=== PATIENT | female | born 1960 | race Caucasian/White ===

== ENCOUNTER 2016-05-26 11:34 | Day surgery (SDC) | payer OTHER ==
[~2016-05-26] VITALS: Ht 149.9 cm; Wt 52.9 kg
[2016-05-26] VITALS (27 sets, daily range): BP systolic 93–134; BP diastolic 55–78; PULSE 16–97; RESP 10–20; TEMP 97.1–98.7; O2SAT 90–100; Ht 149.9 cm; Wt 52.9 kg
[~2016-05-26 11:34] MED LIST: ACET-2723 PO; DEXA4TAB PO; DOCU-132 PO; ERTAPENEM 1 G in NORMAL SALINE 100 ML IV ONE; HYDR-4246 PO; LIDOCAINE 1% (10mg/ml) 2ml SDV INJ ONE; LR 1,000 ML IV SCH; MULT-933 PO; NAPR220C11 PO; ONDA4TAB4 PO; ONDA4TAB7 PO; POTA10CA37 PO; PREN1TAB77 PO; PROC-14 PO
--- OUTSIDE RECORDS SUMMARY | 2016-05-26 11:38 | XMS REPORT | Referral Summary ---
Author Author [facility] Organization [facility] Address Unknown Phone Unavailable Care Team Providers Care Ammunition Assembly Ii Laborer Name Role Phone Evelina Fernandez Primary Care Physician [phone] Encounter VC Date(s): 09/05/14 - 09/05/14 [facility] [address] [place] [address] CHERY Whitley [id number] Discharge Diagnosis: Post-operative state Discharge Disposition: 01-Home or Self Care Attending Physician: Parker Pino MD Admitting Physician: Parker Pino MD Referring Physician: Jessi Bolanos APRN Vital Signs Most recent to 1 oldest [Reference Range]: Temperature Tympanic 36.7 degC [36.6-38.1 degC] (09/05/14 10:13 AM) Problem List Condition Effective Dates Status Health Status Informant Breast Active cancer(Confirmed) Allergies, Adverse Reactions, Alerts Substance Reaction Severity Status iodine1 Medium Active 1HIVES Medications Compazine See Instructions, 10 mg Oral every 6 hrs prn nausea, 0 Refill(s) Start Date: 08/11/14 Status: Ordered Dulcolax Stool Softener mg, Oral, BID, 0 Refill(s) Start Date: 03/19/14 Status: Ordered Imodium A-D See Instructions, 1 mg/7.5 ml liquid. Take 5 ml po prn., 0 Refill(s) Start Date: 08/11/14 Status: Ordered multivitamin 1 tablet, Oral, Daily, 0 Refill(s) Start Date: 08/11/14 Status: Ordered predniSONE See Instructions, 50 mg as directed prior to procedure., 0 Refill(s) Start Date: 08/11/14 Status: Ordered Tylenol Extra Strength 500 mg, Oral, q6hr, as needed for pain, 0 Refill(s) Start Date: 6/1/15 Status: Ordered Results No data available for this section Immunizations No data available for this section Procedures Procedure Date Related Diagnosis Body Site Bilateral mastectomy1 08/29/14 Insertion of implantable venous access port2 04/02/14 Tubal ligation 12/30/99 1With left sentinel node biopsy, node benign.. 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 2Metastaticc breast cancer require neoadjuvant therapy Social History Social History Type Response Smoking Status Never smoker Assessment and Plan Extracted from: Title: Office Visit Note Author: Parker Pino MD Date: 09/06/14 Assessment/Plan Post-operative state Ordered: Postoperative Est [id number] Plan: I informed the patient of her pathology report which was quite encouraging. She was not found to have any residual invasive carcinoma within her left breast following her neoadjuvant therapy. There was still a foci of DCIS. Warriormine metastases node was negative. No malignancy noted within her right prophylactic mastectomy specimen. Her JAZMINE drains were DC'd today. Patient was returned to the office at a one week interval for her suture removal or sooner if problems should arise.
--- OUTSIDE RECORDS SUMMARY | 2016-05-26 11:38 | XMS REPORT | Referral Summary ---
Author Author [facility] Organization [facility] Address Unknown Phone Unavailable Care Team Providers Care Rounder And Backer Name Role Phone Fernandez Evelina Primary Care Physician [phone] Encounter VC Date(s): 09/11/14 - 09/11/14 [facility] [address] [place] [address] CHERY Whitley [id number] Discharge Diagnosis: Visit for suture removal Discharge Diagnosis: Breast cancer Discharge Disposition: 01-Home or Self Care Attending Physician: Jessi Bolanos APRN Admitting Physician: Jessi Bolanos APRN Vital Signs Most recent to 1 oldest [Reference Range]: Temperature Tympanic 36.8 degC [36.6-38.1 degC] (09/11/14 8:43 AM) Problem List Condition Effective Dates Status [...] needed for pain, 0 Refill(s) Start Date: 08/11/14 Status: Ordered Results No data available for [...] smoker Assessment and Plan Extracted from: Title: Ambulatory Patient Education Author: Jessi Bolanos RAILROAD CAR LOADER Date : 09/11/14 [facility] Breast Cancer Survivor Follow-Up Breast cancer begins when cells in the breast divide too rapidly. The extra cells form a lump (tumor ). When the cancer is treated, the goal is to get rid of all cancer cells. However, sometimes a few cells survive. These cancer cells can then grow. They become recurrent cancer. This means the cancer comes back after treatment. Most cases of recurrent breast cancer develop 3 to 5 years after treatment. However, sometimes it comes back just a few months after treatment. Other times , it does not come back until years later. If the cancer comes back in the same area as the first breast cancer, it is called a local recurrence. If the cancer comes back somewhere else in the body, it is called regional recurrence if the site is fairly near the breast or distant recurrence if it is far from the breast. Your caregiver may also use the term metastasize to indicate a cancer that has gone to another part of your body. Treatment is still possible after either kind of recurrence. The cancer can still be controlled. CAUSES OF RECURRENT CANCER No one knows exactly why breast cancer starts in the first place. Why the cancer comes back after treatment is also not clear. It is known that certain conditions, called risk factors, can make this more likely. They include: Developing breast cancer for the first time before age 60. Having breast cancer that involves the lymph nodes. These are small, round pieces of tissue found all over the body. Their job is to help fight infections. Having a large tumor. Cancer is more apt to come back if the first tumor was bigger than 2 inches (5 cm). Having certain types of breast cancer, such as: Inflammatory breast cancer. This rare type grows rapidly and causes the breast to become red and swollen. A high-grade tumor. The grade of a tumor indicates how fast it will grow and spread. High-grade tumors grow more quickly than other types. HER2 cancer. This refers to the tumor's genetic makeup. Tumors that have this type of gene are more likely to come back after treatment. Having close tumor margins. This refers to the space between the tumor and normal, noncancerous cells. If the space is small, the tumor has a greater chance of coming back. Having treatment involving a surgery to remove the tumor but not the entire breast (lumpectomy ) and no radiation therapy. CARE AFTER BREAST CANCER Home Monitoring Women who have had breast cancer should continue to examine their breasts every month. The goal is to catch the cancer quickly if it comes back. Many women find it helpful to do so on the same day each month and to arvin the calendar as a reminder. Let your caregiver know immediately if you have any signs of recurrent breast cancer. Symptoms will vary, depending on where the cancer recurs. The original type of treatment can also make a difference. Symptoms of local recurrence after a lumpectomy or a recurrence in the opposite breast may include: A new lump or thickening in the breast. A change in the way the skin looks on the breast (such as a rash, dimpling , or wrinkling). Redness or swelling of the breast. Changes in the nipple (such as being red, puckered, swollen, or leaking fluid). Symptoms of a recurrence after a breast removal surgery (mastectomy ) may include: A lump or thickening under the skin. A thickening around the mastectomy scar. Symptoms of regional recurrence in the lymph nodes near the breast may include: A lump under the arm or above the collarbone. Swelling of the arm. Pain in the arm, shoulder, or chest. Numbness in the hand or arm. Symptoms of distant recurrence may include: A cough that does not go away. Trouble breathing or shortness of breath. Pain in the bones or the chest. This is pain that lasts or does not respond to rest and medicine. Headaches. Sudden vision problems. Dizziness. Nausea or vomiting. Losing weight without trying to. Persistent abdominal pain. Changes in bowel movements or blood in the stool. Yellowing of the skin or eyes (jaundice ). Blood in the urine or bloody vaginal discharge. Clinical Monitoring It is helpful to keep a schedule of appointments for needed tests and exams. This includes physical exams, breast exams, exams of the lymph nodes, and general exams. For the first 3 years after being treated for breast cancer, see your caregiver every 3 to 6 months. For years 4 and 5 after breast cancer, see your caregiver every 6 to 12 months. After 5 years, see your caregiver at least once a year. Regular breast X-rays (mammograms ) should continue even if you had a mastectomy. A mammogram should be done 1 year after the mammogram that first detected breast cancer. A mammogram should be done every 6 to 12 months after that. Follow your caregiver's advice. A pelvic exam done by your caregiver checks whether female organs are the normal size and shape. The exam is usually done every year. Ask your caregiver if that schedule is right for you. Women taking tamoxifen should report any vaginal bleeding immediately to their caregiver. Tamoxifen is often given to women with a certain type of breast cancer. It has been shown to help prevent recurrence. You will need to decide who your primary caregiver will be. Most people continue to see their cancer specialist (oncologist ) every 3 to 6 months for the first year after cancer treatment. At some point, you may want to go back to seeing your family caregiver. You would no longer see your oncologist for regular checkups. Many women do this about 1 year after their first diagnosis of breast cancer. You will still need to be seen every so often by your oncologist. Ask how often that should be. Coordinate this with your family or primary caregiver. Think about having genetic counseling. This would provide information on traits that can be passed or inherited from one generation to the next. In some cases, breast cancer runs in families. Tell your caregiver if you: Are of Ashkenazi Methodist heritage. Have any family member who has had ovarian cancer. Have a mother, sister, or daughter who had breast cancer before age 50. Have 2 or more close relatives who have had breast cancer. This means a mother, sister, daughter, aunt, or grandmother. Had breast cancer in both breasts. Have a male relative who has had breast cancer. Some tests are not recommended for routine screening. Someone recovering from breast cancer does not need to have these tests if there are no problems. The tests have risks, such as radiation exposure, and can be costly. The risks of these tests are thought to be greater than the benefits: Blood tests. Chest X-rays. Bone scans. Liver ultrasound. Computed tomography (CT scan). Positron emission tomography (PET scan). Magnetic resonance imaging (MRI scan). DIAGNOSIS OF RECURRENT CANCER Recurrent breast cancer may be suspected for various reasons. A mammogram may not look normal. You might feel a lump or have other symptoms. Your caregiver may find something unusual during an exam. To be sure, your caregiver will probably order some tests. The tests are needed because there are symptoms or hints of a problem. They could include: Blood tests, including a test to check how well the liver is working. The liver is a common site for a distant cancer recurrence. Imaging tests that create pictures of the inside of the body. These tests include: Chest X-rays to show if the cancer has come back in the lungs. CT scans to create detailed pictures of various areas of the body and help find a distant recurrence. MRI scans to find anything unusual in the breast, chest, or lymph nodes. Breast ultrasound tests to examine the breasts. Bone scans to create a picture of your whole skeleton and find cancer in bony areas. PET scans to create an image of the whole body. PET scans can be used together with CT scans to show more detail. Biopsy. A small sample of tissue is taken and checked under a microscope. If cancer cells are found, they may be tested to see if they contain the HER2 gene or the hormones estrogen and progesterone. This will help your caregiver decide how to treat the recurrent cancer. TREATMENT How recurrent breast cancer is treated depends on where the new cancer is found. The type of treatment that was used for the first breast cancer makes a difference, too. A combination of treatments may be used. Options include: Surgery. If the cancer comes back in the breast that was not treated before, you may need a lumpectomy or mastectomy. If the cancer comes back in the breast that was treated before, you may need a mastectomy. The lymph nodes under the arm may need to be removed. Radiation therapy. For a local recurrence, radiation may be used if it was not used during the first treatment. For a distance recurrence, radiation is sometimes used. Chemotherapy. This may be used before surgery to treat recurrent breast cancer. This may be used to treat recurrent cancer that cannot be treated with surgery. This may be used to treat a distant recurrence. Hormone therapy. Women with the HER2 gene may be given hormone therapy to attack this gene. Document Released: 10/26/2011 Document Revised: 05/21/2012 Document Reviewed: ExitCare Patient Information 2014 ExitCare, [facility]. No follow up information was provided. Extracted from: Title: Office Visit Note Author: Jessi Bolanos APRN Date: 09/11/14 Assessment/Plan Breast cancer The lymph node was negative. Be sure to follow up with Dr. Beebe as ordered. Do not hesitate to return to our office for any surgical needs. Ordered: Postoperative Est [id number] Visit for suture removal She is not sure she wants a prosthesis and brought and is going to "give this some thought." A business card for designs by [employer] is given to her and she can decide at a later time if she does want to proceed with prosthesis Ordered: Postoperative Est [id number]
--- OUTSIDE RECORDS SUMMARY | 2016-05-26 11:38 | XMS REPORT | Continuity of Care Document ---
Author Author [facility] Organization [facility] Address Unknown Phone Unavailable Support Name Relationship Address Phone JADE FERNANDEZ MD Caregiver [address] [place] [phone] OBED PERLA Caregiver [address] [place] [address] [phone] CHAZ ESTRADA Next Of Kin [address] [place] [address] C Insurance Providers Payer Name Policy Number Subscriber Name Relationship Camilo Tsai [facility] [id number] Yara Estrada 18 Self Advance Directives Directive Response Recorded Date/Time Resuscitation Documents on File No 04/06/14 9:32am Problems No known problems or medical conditions. Medications Medication Dose Route Sig Days/Qty Instructions Order Date Discontinued Date Status Multivitamin 1 Tab PO DAILY 04/03/14 Active Acetaminophen 04/03/14 04/03/14 Discontinued Acetaminophen 1-2 Tab PO Every 6 Hours PRN PAIN 04/03/14 Active Social History Social History Problem Response Recorded Date/Time Hx Substance Use No 04/01/2014 11:18am Hx Alcohol Use No 04/01/2014 11:18am Has the pt used tobacco in the last 12 months No 04/01/2014 11:18am Hospital Discharge Instructions No hospital discharge instructions. Plan of Care No plan of care. Functional Status No functional status results. Allergies, Adverse Reactions, Alerts Allergen Type Severity Reaction Status Last Updated Iodinated Contrast Media - IV Dye Allergy Intermediate rash/hives Active 03/25/14 Immunizations Name Given Type Hx Influenza Vaccination No Historical Hx Pneumococcal Vaccination No Historical Hx Influenza Vaccination No Historical Vital Signs Acute Vital Signs Vital Response Date/Time Temperature (Fahrenheit) 97.7 deg F (96.8 - 99.1) Temperature (Calculated Celsius) 36.82599 degrees C (36.0 - 37.3) Temperature Source Temporal Pulse Rate (adult) 73 bpm (60 - 100) Respiratory Rate 20 breaths/min (10 - 20) O2 Sat by Pulse Oximetry 100 % (90 - 100) Oxygen Delivery Method Room Air Blood Pressure 134/81 mm Hg Blood Pressure Source Automatic Cuff Height 4 ft 11 in Weight 131 lb Body Mass Index 26.0 kg/m^2 Results Test Source Date Result Interp. Ref. Range Comments Alanine Aminotransferase (ALT/SGPT) April 03, 2014 12:10pm 39 U/L N 9- 52 Albumin April 03, 2014 12:10pm 4.2 G/DL N 3.5-5.0 Albumin/Globulin Ratio April 03, 2014 12:10pm 1.6 RATIO N 1.1-2.2 Alkaline Phosphatase April 03, 2014 12:10pm 51 U/L N 38-126 Anion Gap April 03, 2014 12:10pm 10 MEQ/L N 5-15 Aspartate Amino Transf (AST/SGOT) April 03, 2014 12:10pm 25 U/L N 14- 36 BUN/Creatinine Ratio April 03, 2014 12:10pm 20 RATIO N 6-26 Basophils # (Auto) April 03, 2014 7:09am 0.0 T/MM3 N 0-0.2 Basophils (%) (Auto) April 03, 2014 7:09am 0.6 % N 0-2 Blood Urea Nitrogen April 03, 2014 12:10pm 12.0 MG/DL N 7-17 CA 27.29 March 20, 2014 12:31pm 23.94 U/ML N 0-37.7 Calcium Level April 03, 2014 12:10pm 9.5 MG/DL N 8.4-10.2 Calculated Osmolality April 03, 2014 12:10pm 272 MOSM/KG N 261-280 Carbon Dioxide Level April 03, 2014 12:10pm 30 MEQ/L N 22-30 Chloride Level April 03, 2014 12:10pm 101 MEQ/L N 98-107 Creatinine April 03, 2014 12:10pm 0.6 MG/DL L 0.7-1.2 Eosinophils # (Auto) April 03, 2014 7:09am 0.1 T/MM3 N 0-0.5 Eosinophils (%) (Auto) April 03, 2014 7:09am 2.3 % N 0-4 Globulin April 03, 2014 12:10pm 2.7 G/DL N 2.4-3.6 Glucose Level April 03, 2014 12:10pm 110 MG/DL N 65-110 Hematocrit April 03, 2014 7:09am 39.9 % N 36-46 Hemoglobin April 03, 2014 7:09am 13.6 GM/DL N 12-16 Lactate Dehydrogenase March 20, 2014 12:31pm 469 U/L N 313-618 Lymphocytes # (Auto) April 03, 2014 7:09am 2.1 T/MM3 N 1-4.8 Lymphocytes (%) (Auto) April 03, 2014 7:09am 41.1 % N 23-45 Magnesium Level April 03, 2014 12:10pm 1.9 MG/DL N 1.6-2.3 Mean Corpuscular Hemoglobin April 03, 2014 7:09am 31.4 UUG N 26-34 Mean Corpuscular Hemoglobin Concent April 03, 2014 7:09am 34.1 GM/DL N 31-37 Mean Corpuscular Volume April 03, 2014 7:09am 92.1 UM3 N 80-100 Mean Platelet Volume April 03, 2014 7:09am 8.9 UM3 L 9.4-12.4 Monocytes # (Auto) April 03, 2014 7:09am 0.5 T/MM3 N 0-0.8 Monocytes (%) (Auto) April 03, 2014 7:09am 8.7 % N 0-9.0 Neutrophils # (Auto) April 03, 2014 7:09am 2.4 T/MM3 N 1.8-7.7 Neutrophils (%) (Auto) April 03, 2014 7:09am 47.1 % N 33-66 Platelet Count April 03, 2014 7:09am 320 T/MM3 N 130-400 Potassium Level April 03, 2014 12:10pm 3.8 MEQ/L N 3.6-5 RDW Standard Deviation April 03, 2014 7:09am 39.9 FL N 36.9-50.2 Red Blood Count April 03, 2014 7:09am 4.33 M/MM3 N 4.00-5.20 Sodium Level April 03, 2014 12:10pm 141 MEQ/L N 134-144 Total Bilirubin April 03, 2014 12:10pm 0.40 MG/DL N 0.20-1.30 Total Protein April 03, 2014 12:10pm 6.9 G/DL N 6.3-8.2 White Blood Count April 03, 2014 7:09am 5.2 T/MM3 N 4.5-11.0 Chemistry Specimen Hemolysis April 03, 2014 12:10pm < 15 0-25 0-25 : No Hemolysis.26-70: Slight Hemolysis - can falsely elevate K and Urine Protein. 71-285: Moderate Hemolysis - can falsely elevate K, Troponin I, CA 19-9, PTH, CSF GLucose, and Urine Protein, and can falsely decrease Phenytoin. 286-999: Gross Hemolysis - can falsely elevate K, Troponin I, CA 19-9, PTH, CSF Glucose, and Urine Protine, and can falsely decrease Phenytoin. Recommend specimen recollection. Lab Scanned Report March 20, 2014 8:46pm LAB TEST FORM REQUEST [id number] - Turbidity April 03, 2014 12:10pm < 20 0-20 Glomerular Filtration Rate Calc April 03, 2014 12:10pm 105 - Immature Granulocyte # (Auto) April 03, 2014 7:09am 0.01 T/MM3 N 0.00- 0.03 Immature Granulocyte % (Auto) April 03, 2014 7:09am 0.2 % N 0.0-0.5 Icterus Index April 03, 2014 12:10pm < 2 0-7 Name: YARA ESTRADA Unit #: [id number] : 1960 Sex: F Loc / Svc: COU DOS: 04/03/14 Signed Report #: [id number] DIAGNOSTIC IMAGING REPORT TYPE OF EXAM: RF PORTACATH W FLUORO W 1V CXR Dictated By: LEOPOLDO FERNANDEZ MD INDICATION: ITS.REASON: PORT INSERTION RF PORTACATH W FLUORO W 1V CXR: Comparison: None Findings: Single fluoroscopic spot image of the right chest shows a right port catheter and some disconnected tubing projecting over the right chest. Single portable view of the chest shows a right internal jugular port catheter in place with the tip projecting over the lower SVC. No pneumothorax. Lungs are grossly clear. Cardiomediastinal contours are within normal limits. Impression: New right internal jugular port catheter with the tip projecting over the lower SVC. . Procedures Procedure Status Date Provider(s) US EXAM BREAST(S) completed 02/05/14 COMPUTER DX MAMMOGRAM ADD-ON completed 02/05/14 [id number]"DIAGNOSTIC MAMMOGRAPHY, PRODUCING DIRECT DIGITAL IMAG completed CT ABD & PELV W/CONTRAST completed 02/07/14 [id number]"INFUSION, NORMAL SALINE SOLUTION , 250 CC" completed 02/07/14 [id number]"LOW OSMOLAR CONTRAST MATERIAL, 300-399 MG/ML IODINE C completed BX BREAST 1ST LESION US IMAG completed 02/20/14 BX BREAST ADD LESION US IMAG completed 02/20/14 [id number]"DIAGNOSTIC MAMMOGRAPHY, PRODUCING DIRECT DIGITAL IMAG completed MRI BRAIN STEM W/O & W/DYE completed 03/27/14 CT THORAX W/DYE completed 03/27/14 CT ABD & PELV W/CONTRAST completed 03/27/14 3D RENDER W/INTRP POSTPROCES completed 03/27/14 MRI BOTH BREASTS completed 03/27/14 GADAVIST 10ML SDV - Contrast,Gadavist 10ml completed 03/27/14 [id number]"INFUSION, NORMAL SALINE SOLUTION , 250 CC" completed 03/27/14 [id number]"INFUSION, NORMAL SALINE SOLUTION , 250 CC" completed 03/27/14 [id number]"LOW OSMOLAR CONTRAST MATERIAL, 200-299 MG/ML IODINE C completed BONE IMAGING WHOLE BODY completed 03/25/14 TTE W/DOPPLER COMPLETE completed 03/25/14 [id number]"TECHNETIUM TC-99M MEDRONATE, DIAGNOSTIC, PER STUDY DO completed ROUTINE VENIPUNCTURE completed 03/20/14 COMPREHEN METABOLIC PANEL completed 03/20/14 LACTATE (LD) (LDH) ENZYME completed 03/20/14 COMPLETE CBC W/AUTO DIFF WBC completed 03/20/14 IMMUNOASSAY TUMOR CA 15-3 completed 03/20/14 ROUTINE VENIPUNCTURE completed 04/03/14 INSERT TUNNELED CV CATH completed 04/03/14 MUSHTAQ ESQUEDA MD, FACS, CWS FLUOROGUIDE FOR VEIN DEVICE completed 04/03/14 COMPLETE CBC W/AUTO DIFF WBC completed 04/03/14 [id number]"PORT, INDWELLING (IMPLANTABLE)" completed 04/03/14"INJECTION, CEFAZOLIN SODIUM, 500 MG" completed 04/03/14"INJECTION, HEPARIN SODIUM, (HEPARIN LOCK FLUSH), PER completed PROPOFOL INJ 500 MG/50ML completed 04/03/14"INJECTION, FENTANYL CITRATE, 0.1 MG" completed 04/03/14"RINGERS LACTATE INFUSION, UP TO 1000 CC" completed 04/03/14 Encounters Encounter Location Date/Time Registered [facility] 04/06/14 9:02am Registered [facility] 04/03/14 12:17pm Registered [facility] 04/02/14 6:01am Registered [facility] 03/27/14 12:07pm Registered [facility] 03/25/14 9:33am Registered [facility] 03/20/14 12:12pm Registered [facility] 02/20/14 1:09pm Registered [facility] 02/07/14 8:38am Registered [facility] 02/05/14 2:42pm
--- OUTSIDE RECORDS SUMMARY | 2016-05-26 11:38 | XMS REPORT | Referral Summary ---
Author Author [facility] Organization [facility] Address Unknown Phone Unavailable Care Team Providers Care Technical Trainer Name Role Phone Evelina Fernandez Primary Care Physician [phone] Encounter VC Date(s): 08/19/14 - 08/19/14 [facility] [address] [place] [address] CHERY Whitley [id number] Discharge Diagnosis: Breast cancer Discharge Disposition: 01-Home or Self Care Attending Physician: Parker Pino MD Admitting Physician: Parker Pino MD Referring Physician: Ward Fernandez MD Vital Signs Most recent to 1 oldest [Reference Range]: Temperature Tympanic 37.3 degC [36.6-38.1 degC] (08/19/14 4:03 PM) Peripheral Pulse 68 bpm Rate [60-100 bpm] (08/19/14 4:03 PM) Respiratory Rate 16 br/min [14-20 br/min] (08/19/14 4:03 PM) Blood Pressure 121/68 mmHg [90-140/60-90 mmHg] (08/19/14 4:03 PM) Problem List Condition Effective Dates Status Health [...] Extracted from: Title: Ambulatory Patient Education Author: Parekr Pino MD Date: 08/19 Obstetrics and Gynecology Mastectomy, With or Without Reconstruction Mastectomy (removal of the breast) is a procedure most commonly used to treat cancer (tumor) of the breast. Different procedures are available for treatment. This depends on the stage of the tumor (abnormal growths). Discuss this with your caregiver, surgeon (a specialist for performing operations such as this), or oncologist (someone specialized in the treatment of cancer). With proper information, you can decide which treatment is best for you. Although the sound of the word cancer is frightening to all of us, the new treatments and medications can be a source of reassurance and comfort. If there are things you are worried about, discuss them with your caregiver. He or she can help comfort you and your family. Some of the different procedures for treating breast cancer are: Radical (extensive) mastectomy. This is an operation used to remove the entire breast, the muscles under the breast, and all of the glands (lymph nodes ) under the arm. With all of the new treatments available for cancer of the breast, this procedure has become less common. Modified radical mastectomy. This is a similar operation to the radical mastectomy described above. In the modified radical mastectomy, the muscles of the chest wall are not removed unless one of the lessor muscles is removed. One of the lessor muscles may be removed to allow better removal of the lymph nodes. The axillary lymph nodes are also removed. Rarely, during an axillary node dissection nerves to this area are damaged. Radiation therapy is then often used to the area following this surgery. A total mastectomy also known as a complete or simple mastectomy. It involves removal of only the breast. The lymph nodes and the muscles are left in place. In a lumpectomy, the lump is removed from the breast. This is the simplest form of surgical treatment. A sentinel lymph node biopsy may also be done. Additional treatment may be required. RISKS AND COMPLICATIONS The main problems that follow removal of the breast include: Infection (germs start growing in the wound). This can usually be treated with antibiotics (medications that kill germs). Lymphedema . This means the arm on the side of the breast that was operated on swells because the lymph (tissue fluid) cannot follow the main channels back into the body. This only occurs when the lymph nodes have had to be removed under the arm. There may be some areas of numbness to the upper arm and around the incision (cut by the surgeon) in the breast. This happens because of the cutting of or damage to some of the nerves in the area. This is most often unavoidable. There may be difficulty moving the arm in a full range of motion (moving in all directions) following surgery. This usually improves with time following use and exercise. Recurrence of breast cancer may happen with the very best of surgery and follow up treatment. Sometimes small cancer cells that cannot be seen with the naked eye have already spread at the time of surgery. When this happens other treatment is available. This treatment may be radiation, medications or a combination of both. RECONSTRUCTION Reconstruction of the breast may be done immediately if there is not going to be post-operative radiation. This surgery is done for cosmetic (improve appearance) purposes to improve the physical appearance after the operation. This may be done in two ways: It can be done using a saline filled prosthetic (an artificial breast which is filled with salt water). Silicone breast implants are now re-approved by the FDA and are being commonly used. Reconstruction can be done using the body's own muscle/fat/skin. Your caregiver will discuss your options with you. Depending upon your needs or choice, together you will be able to determine which procedure is best for you. Document Released: 11/22/2001 Document Revised: 11/21/2012 Document Reviewed: ExitCare Patient Information 2013 [employer] [facility]. No follow up information was provided. Extracted from: Title: Office Visit Note Author: Parker Pino MD Date: 08/19/14 Assessment/Plan Breast cancer Ordered: Office Visit Level 4 Est 40096 Plan: Bilateral mastectomies, left sentinel lymph node biopsy, possible axillary dissection. I did spend a moderate amount of time reviewing the patient's chart. Reviewed my original office note from March 19, 2014. 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 Previously her lymph node had also been biopsied and returned revealing metastatic poorly differentiated carcinoma. Reviewed prior mammograms. Reviewed prior radiographic evaluation revealing evidence for left supraclavicular and left neck adenopathy consistent with metastatic disease. Reviewed numerous office notes performed by her oncologist. Initially the mass within her left breast upon radiographic evaluation was 1.7 x 1.8 x 1.9 cm. I did spend a moderate amount of time discussing with the patient and her the typical surgical options available for management of breast cancer. I discussed with them the option of breast conservation/lumpectomy versus that of a mastectomy. I also discussed with them the option of proceeding with prophylactic mastectomy of the contralateral breast. We also discussed the potential for breast reconstruction. Additionally I discussed with them about re-assessing her lymph hector statusby proceeding with a sentinel lymph node biopsy. If her sentinel lymph node is positivewe would proceed with a "limited" axillary dissection. Patient was fairly adamant at this point time as stated above she would like to proceed with bilateral mastectomies. She also stated that she was not interested in breast reconstruction. I did discuss with the patient what bilateral mastectomies, left sentinel lymph node biopsy , possible axillary dissection would entail and its associated risk which included but was not inclusive of bleeding, infection, potential for flap necrosis, development of postoperative seroma, potential injury to structures within the left axilla. Patient understood and was scheduled.
--- OUTSIDE RECORDS SUMMARY | 2016-05-26 11:38 | XMS REPORT | Referral Summary ---
Author Organization Unknown Address Unknown Phone Unavailable Care Team Providers Care Braker Passenger Train Name Role Phone Pia Crow Primary Care Physician [phone] Encounter VC Date(s): 04/15/14 - 04/15/14 [facility] [address] [place] [id number] Discharge Diagnosis: Post-operative state Discharge Disposition: Home or Self Care Attending Physician: Parker Pino MD Admitting Physician: Parker Pino MD Referring Physician: Sharonda Crow APRN Vital Signs Most recent to 1 oldest [Reference Range]: Temperature Tympanic 37.4 degC [36.6-38.1 degC] (04/15/14 3:03 PM) Problem List Condition Effective Dates Status Health Status Informant Breast Active cancer(Confirmed) Allergies, Adverse Reactions, Alerts Substance Reaction Severity Status iodine1 Medium Active 1HIVES Medications Dulcolax Stool Softener mg, Oral, BID, 0 Refill(s) Start Date: 03/19/14 Status: Ordered Results No data available for this section Immunizations No data available for this section Procedures Procedure Date Related Diagnosis Body Site Insertion of implantable venous access port1 04/02/14 Tubal ligation 12/30/99 1Metastaticc breast cancer require neoadjuvant therapy Social History Social History Type Response Smoking Status Never smoker Assessment and Plan Extracted from: Title: Ambulatory Patient Education Author: Jessi Bolanos APRN Date : 04/15/14 Family Medicine Preventing Constipation After Surgery Constipation is when a person has fewer than 3 bowel movements a week; has difficulty having a bowel movement; or has stools that are dry, hard, or larger than normal. Many things can make constipation likely after surgery. They include: Medications, especially numbing medications (anesthetics ) and very strong pain medications called narcotics. Feeling stressed because of the surgery. Eating different foods than normal. Being less active. Symptoms of constipation include: Having fewer than 3 bowel movements a week. Straining to have a bowel movement. Having hard, dry, or kjrala-ozpd-aomtoh stools. Feeling full or bloated. Having pain in the lower abdomen. Not feeling relief after having a bowel movement. HOME CARE INSTRUCTIONS Diet Eat foods that have a lot of fiber. These include fruits, vegetables, whole grains, and beans. Limit foods high in fat and processed sugars. These include persian fries, hamburgers, cookies, and candy. Take a fiber supplement as directed. If you are not taking a fiber supplement and think that you are not getting enough fiber from foods, talk to your caregiver about adding a fiber supplement to your diet. Drink clear fluids, especially water. Avoid drinking alcohol, caffeine, and soda. These can make constipation worse. Drink enough fluids to keep your urine clear or pale yellow. Activity After surgery, return to your normal activities slowly or when your caregiver says it is okay. Start walking as soon as you can. Try to go a little farther each day. Once your caregiver approves, do some sort of regular exercise. This helps prevent constipation. Bowel Movements Go to the restroom when you have the urge to go. Do not hold it in. Try drinking something hot to get a bowel movement started. Keep track of how often you use the restroom. If you miss 23 bowel movements, talk to your caregiver about medications that prevent constipation. Your caregiver may suggest a stool softener, laxative, or fiber supplement. Only take rksn-mhn-hzeidmi or prescription medications as directed by your caregiver. Do not take other medications without talking to your caregiver first. If you become constipated and take a medication to make you have a bowel movement, the problem may get worse. Other kinds of medication can also make the problem worse. SEEK MEDICAL CARE IF: You used stool softeners or laxatives and still have not had a bowel movement within 2448 hours after using them. You have not had a bowel movement in 3 days. SEEK IMMEDIATE MEDICAL CARE IF: Your constipation lasts for more than 4 days or gets worse. You have bright red blood in your stool. You have abdominal or rectal pain. You have very bad cramping. You have thin, pencil-like stools. You have unexplained weight loss. You have a fever or persistent symptoms for more than 23 days. You have a fever and your symptoms suddenly get worse. MAKE SURE YOU: Understand these instructions. Will watch your condition. Will get help right away if you are not doing well or get worse. Document Released: 06/24/2013 Document Reviewed: 04/12/2013 ExitCare Patient Information 2014 [employer]. No follow up information was provided. Extracted from: Title: Office Visit Note Author: Jessi Bolanos SR. PAYROLL PROCESSOR Date: 04/15/14 Assessment/Plan Post-operative state Incision and port area looked good. Continue with your ongoing oncologic management with Dr. Beebe. We'll be glad to see you back once you're done with your chemotherapy routine for any additional surgical intervention that might be needed. Ordered: Postoperative Est [id number]
--- OUTSIDE RECORDS SUMMARY | 2016-05-26 11:38 | XMS REPORT | Referral Summary ---
Author Author [facility] Organization [facility] Address Unknown Phone Unavailable Care Team Providers Care Education Program Coordinator Name Role Phone Evelina Fernandez Primary Care Physician [phone] Encounter VC Date(s): 08/29/14 - 08/29/14 [facility] [address] [place] [address] CH[place] Whit[place] [id number] Discharge Disposition: 01-Home or Self Care Attending Physician: Parker Pino MD Admitting Physician: Parker Pino MD Vital Signs No data available for this section Problem List Condition Effective Dates Status Health [...] Related Diagnosis Body Site Bilateral mastectomy1 08/29/14 Biopsy or excision of lymph node(s); open, 08/29/14 deep axillary node(s) Injection procedure; radioactive tracer for 08/29/14 identification of sentinel node Mastectomy, simple, complete 08/29/14 Mastectomy, simple, complete 08/29/14 Mastectomy, simple, complete 08/29/14 Mastectomy, simple, complete 08/29/14 Insertion of implantable venous access port2 04/02/14 Tubal ligation 12/30/99 1With left sentinel node biopsy, node benign.. 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 2Metastaticc breast cancer require neoadjuvant therapy Social History Social History Type Response Smoking Status Never smoker Assessment and Plan No data available for this section
--- OUTSIDE RECORDS SUMMARY | 2016-05-26 11:38 | XMS REPORT | Continuity of Care Document ---
Author Author [facility] Organization [facility] Address Unknown Phone Unavailable Support Name Relationship Address Phone JADE FERNANDEZ MD Caregiver [address] [place] [phone] MUSHTAQ ESQUEDA FACS, MD Caregiver [address] [place] [address] [place] [address] [phone] CHAZ ESTRADA Next Of Kin [address] [place] [address] C Insurance Providers Payer Name Policy Number Subscriber Name Relationship Camilo Tsai [facility] [id number] Yara Estrada 18 Self Advance Directives Directive Response Recorded Date/Time Dr Fishman Resuscitation Status Full Code 04/02/14 10:47am Resuscitation Documents on File No 04/01/14 11:25am Problems No known problems or medical conditions. Medications Medication Dose Route Sig Days/Qty Instructions Order Date Discontinued Date Status Multivitamin 1 Tab PO DAILY 04/03/14 Active Acetaminophen 04/03/14 04/03/14 Discontinued Acetaminophen 1-2 Tab PO Every 6 Hours PRN PAIN 04/03/14 Active Social History Social History Problem Response Recorded Date/Time Chewing Tobacco Status No 04/01/2014 11:18am Hx Substance Use No 04/01/2014 11:18am Hx Alcohol Use No 04/01/2014 11:18am Has the pt used tobacco in the last 12 months No 04/01/2014 11:18am Query Response Start Date Stop Date Smoking Status Never smoker Hospital Discharge Instructions No hospital discharge instructions. [...] Vital Signs Vital Response Date/Time Temperature (Fahrenheit) 97.6 deg F (96.8 - 99.1) Temperature (Calculated Celsius) 36.55292 degrees C (36.0 - 37.3) Temperature Source Temporal Pulse Rate (adult) 62 bpm (60 - 100) Respiratory Rate 16 breaths/min (10 - 20) O2 Sat by Pulse Oximetry 98 % (90 - 100) Oxygen Delivery Method Room Air Blood Pressure 142/80 mm Hg Blood Pressure Source Automatic Cuff Height 4 ft 11 in Weight 130 lb Body Mass Index 26.0 kg/m^2 Results Test Source Date Result Interp. Ref. Range Comments Alanine Aminotransferase (ALT/SGPT) March 20, 2014 12:31pm 17 U/L N 9- 52 Albumin March 20, 2014 12:31pm 5.1 G/DL H 3.5-5.0 Albumin/Globulin Ratio March 20, 2014 12:31pm 1.8 RATIO N 1.1-2.2 Alkaline Phosphatase March 20, 2014 12:31pm 72 U/L N 38-126 Anion Gap March 20, 2014 12:31pm 10 MEQ/L N 5-15 Aspartate Amino Transf (AST/SGOT) March 20, 2014 12:31pm 23 U/L N 14- 36 BUN/Creatinine Ratio March 20, 2014 12:31pm 16 RATIO N 6-26 Basophils # (Auto) April 03, 2014 7:09am 0.0 T/MM3 N 0-0.2 Basophils (%) (Auto) April 03, 2014 7:09am 0.6 % N 0-2 Blood Urea Nitrogen March 20, 2014 12:31pm 11.0 MG/DL N 7-17 CA 27.29 March 20, 2014 12:31pm 23.94 U/ML N 0-37.7 Calcium Level March 20, 2014 12:31pm 10.4 MG/DL H 8.4-10.2 Calculated Osmolality March 20, 2014 12:31pm 273 MOSM/KG N 261-280 Carbon Dioxide Level March 20, 2014 12:31pm 29 MEQ/L N 22-30 Chloride Level March 20, 2014 12:31pm 103 MEQ/L N 98-107 Creatinine March 20, 2014 12:31pm 0.7 MG/DL N 0.7-1.2 Eosinophils # (Auto) April 03, 2014 7:09am 0.1 T/MM3 N 0-0.5 Eosinophils (%) (Auto) April 03, 2014 7:09am 2.3 % N 0-4 Globulin March 20, 2014 12:31pm 2.9 G/DL N 2.4-3.6 Glucose Level March 20, 2014 12:31pm 112 MG/DL H 65-110 Hematocrit April 03, 2014 7:09am 39.9 % N 36-46 Hemoglobin April 03, 2014 7:09am 13.6 GM/DL N 12-16 Lactate Dehydrogenase March 20, 2014 12:31pm 469 U/L N 313-618 Lymphocytes # (Auto) April 03, 2014 7:09am 2.1 T/MM3 N 1-4.8 Lymphocytes (%) (Auto) April 03, 2014 7:09am 41.1 % N 23-45 Mean Corpuscular Hemoglobin April 03, 2014 7:09am [...] 7:09am 320 T/MM3 N 130-400 Potassium Level March 20, 2014 12:31pm 4.1 MEQ/L N 3.6-5 RDW Standard Deviation April 03, 2014 7:09am 39.9 FL N 36.9-50.2 Red Blood Count April 03, 2014 7:09am 4.33 M/MM3 N 4.00-5.20 Sodium Level March 20, 2014 12:31pm 142 MEQ/L N 134-144 Total Bilirubin March 20, 2014 12:31pm 0.50 MG/DL N 0.20-1.30 Total Protein March 20, 2014 12:31pm 8.0 G/DL N 6.3-8.2 White Blood Count April 03, 2014 7:09am 5.2 T/MM3 N 4.5-11.0 Chemistry Specimen Hemolysis March 20, 2014 12:31pm < 15 0-25 0-25 : No Hemolysis.26-70: [...] 20, 2014 8:46pm LAB TEST FORM REQUEST [id number] - Turbidity March 20, 2014 12:31pm < 20 0-20 Glomerular Filtration Rate Calc March 20, 2014 12:31pm 88 - Immature Granulocyte # (Auto) April 03, 2014 7:09am 0.01 T/MM3 N 0.00- 0.03 Immature Granulocyte % (Auto) April 03, 2014 7:09am 0.2 % N 0.0-0.5 Icterus Index March 20, 2014 12:31pm < 2 0-7 Name: YARA ESTRADA Unit #: [id number] : 1960 Sex: F Loc / Svc: SCU DOS: 04/03/14 Signed Report #: [id number] DIAGNOSTIC IMAGING REPORT TYPE OF EXAM: RF [...] 02/05/14 COMPUTER DX MAMMOGRAM ADD-ON completed 02/05/14 [id number]"DIAGNOSTIC MAMMOGRAPHY, PRODUCING DIRECT DIGITAL IMAG completed CT ABD & PELV W/CONTRAST completed 02/07/14 [id number]"INFUSION, NORMAL SALINE SOLUTION , 250 CC" completed 02/07/14 [id number]"LOW OSMOLAR CONTRAST MATERIAL, 300-399 MG/ML IODINE C completed Bx breast 1st Lesion US imag completed 02/20/14 Bx breast add Lesion US imag completed 02/20/14 [id number]"DIAGNOSTIC MAMMOGRAPHY, PRODUCING DIRECT DIGITAL IMAG completed MRI BRAIN STEM W/O & W/DYE completed 03/27/14 CT THORAX W/DYE completed 03/27/14 CT ABD & PELV W/CONTRAST completed 03/27/14 3D RENDER W/INTRP POSTPROCES completed 03/27/14 MRI BOTH BREASTS completed 03/27/14 GADAVIST 10ML SDV - Contrast,Gadavist 10ml completed 03/27/14 [id number]"INFUSION, NORMAL SALINE SOLUTION , 250 CC" completed 03/27/14 [id number]"INFUSION, NORMAL SALINE SOLUTION , 250 CC" completed 03/27/14 [id number]"LOW OSMOLAR CONTRAST MATERIAL, 200-299 MG/ML IODINE C completed BONE IMAGING WHOLE BODY completed 03/25/14 TTE W/DOPPLER COMPLETE completed 03/25/14 [id number]"TECHNETIUM TC-99M MEDRONATE, DIAGNOSTIC, PER STUDY DO completed ROUTINE VENIPUNCTURE completed 03/20/14 COMPREHEN METABOLIC PANEL completed 03/20/14 LACTATE (LD) (LDH) ENZYME completed 03/20/14 COMPLETE CBC W/AUTO DIFF WBC completed 03/20/14 IMMUNOASSAY TUMOR CA 15-3 completed 03/20/14 Insertion of vascular catheter completed 04/03/14 MUSHTAQ ESQUEDA MD, FACS , CWS Encounters Encounter Location Date/Time Registered [facility] 04/02/14 6:01am Registered [facility] 03/27/14 12:07pm Registered Clinic [facility] 03/25/14 9:33am Registered Clinic [facility] 03/20/14 12:12pm Registered Clinic [facility] 02/20/14 1:09pm Registered Clinic [facility] 02/07/14 8:38am Registered [facility] 02/05/14 2:42pm
--- OUTSIDE RECORDS SUMMARY | 2016-05-26 11:38 | XMS REPORT | Referral Summary ---
Author Author [facility] Organization [facility] Address Unknown Phone Unavailable Care Team Providers Care Flame Degreaser Name Role Phone Evelina Fernandez Primary Care Physician [phone] Encounter VC Date(s): 09/02/14 - 09/02/14 [facility] [address] [place] [address] CHERY Whitley [id number] Discharge Diagnosis: Breast cancer Discharge Diagnosis: Encounter for change or removal of drains Discharge Disposition: 01-Home or Self Care Attending Physician: Jessi Bolanos APRN Admitting Physician: Jessi Bolanos APRN Referring Physician: Ward Fernandez MD Vital Signs Most recent to 1 oldest [Reference Range]: Temperature Tympanic 36.8 degC [36.6-38.1 degC] (09/02/14 9:17 AM) Problem List Condition Effective Dates Status [...] Title: Ambulatory Patient Education Author: Jessi Bolanos PROPERTY INSURANCE AGENT Date : 09/02/14 Family Medicine Breast Cancer, What You Should Know Breast cancer is one of the most common types of cancer in women. It is the second leading cause of for all women. The probability that breast cancer will return after treatment is directly related to the stage of its malignancy. This means how advanced the cancer is before it is found and treated. If breast cancer is found and treated early, before the cancer has spread to the lymph nodes, your chance for survival is much better. Delays in diagnosing or treating breast cancer can result in spread of the cancer. This happens when warning signs are ignored and proper measures for diagnosis or treatment are not taken. When breast cancer spreads beyond the breast to other parts of the body, staging is done in order to find out the extent of the cancer and to give the best treatment available. Today, there is a better chance of survival in the treatment of breast cancer. In the past 20 to 30 years, the diagnosis and treatment of breast cancer has greatly improved. There are more options for the type of surgery available (not just radical breast removal [mastectomy ] and removal of lymph nodes in the armpit). There are also improved medicines, chemotherapy, radiation therapy, and breast reconstruction. These innovations have improved the survival rate and have helped with complications of breast cancer that were present in the past. Radiation, chemotherapy, and medicines may be used before or after surgery to shrink the tumor, kill any remaining cancer cells, and to prevent spreading and recurrence of the cancer. Research to develop new medicines, procedures, and combinations of treatments is constantly being done to help improve prevention, treatment, and to reduce recurrence of breast cancer. TYPES OF BREAST CANCER In situ. Cancer is contained in the tumor and has not spread. Invasive. Cancer has spread outside the tumor. Inflammatory. The whole breast is red (inflamed ), painful, and swollen ( rare). Paget's disease. Cancer starts in the nipple and spreads to the areola ( rare). Breast cancer in the milk ducts. Breast cancer in the milk lobules. Males can get breast cancer, but it is very rare. RISK FACTORS There are certain conditions and circumstances that place some women at risk for developing breast cancer. If you have any or several of these risks, you should be aware of them and take extra precautions to take better care of yourself. Some of these risk factors include: Previous history of breast cancer. Family history of breast cancer. Abnormal genes present in your body (BRCA 1, BRCA 2, and HER-2). Calcium deposits (calcifications ) seen on your breast X-ray (mammogram ). Starting your menstrual periods before age 12 (early menarche ). Late menopause, at age 55 or older. Heavy radiation exposure to the chest. Cancer of the uterus, ovary, or intestine. Drinking too much alcohol. Never having a baby or . Taking too much hormone treatment for too long. Being very tall. Being of [place] descent. Obesity. Presence of estrogen or progesterone receptor cells in the breast. Smoking. Low-dose control pills and fibrocystic disease of the breast are not thought to cause breast cancer. MANAGING BREAST PROBLEMS The following are steps that should be taken to avoid a bad outcome with a breast problem: You should practice "breast self-awareness." This means understanding the normal appearance and feel of your breasts and may include breast self-exams. Any changes detected, no matter how small, should be reported to your caregiver. Women in their 20s and 30s should have a clinical breast exam (CBE) by a caregiver as part of a regular health exam every 1 to 3 years. After age 40 , women should have a CBE every year. All lumps should be evaluated thoroughly by ultrasound, mammogram, magnetic resonance imaging (MRI) scan, tissue sample (biopsy ) exam, or removed and examined for cancer. If you are told you have a breast infection, make sure you follow up with your caregiver until it gets better and goes away. If you are told a tumor is benign (noncancerous ), question the diagnosis and ask for a biopsy to make sure. All tumors should be removed and examined for cancer. Do not disregard sharp pains in your breast. Make sure you have an answer for what is causing the pain and follow up properly. If you have signs of pulling in (retraction ) of your nipple, make sure you understand the reason for this and that proper studies are done. If you have signs of discharge from your nipple, especially blood, make sure you are told the reason for this and that proper tests are done. If a needle aspiration biopsy is done and is negative, make sure you know when to follow up with this, and when repeat testing should be done. Get a second opinion if necessary. Do not rely only on mammograms. Be sure to have regular self-exams and physical breast exams by your caregiver. Have a mammogram done on a regular basis, or as recommended. The [place] [employer] has guidelines based on age and risk factors that may be present. If there are findings from your mammogram, make sure you follow up properly. Make sure you know when additional testing needs to be done. You should know that: Radiation from mammograms does not cause cancer or other problems to the breast, skin, heart, or lungs. Other screening tests for the breast are ultrasound and MRI scans. There are medicines available that may help prevent breast cancer or help prevent recurrence in women at high risk, 35 years old or older. These medicines block estrogen hormone from getting into the tumor: Tamoxifen. Raloxifene. Trastuzumab. Sometimes, the ovaries will be removed to decrease estrogen or progesterone hormone production. These hormones may stimulate the growth, recurrence, or spread of breast cancer. Finding out the results of your test When you have breast testing done, ask when your test results will be ready. Make sure you get your test results. FOR MORE INFORMATION [place] [employer]: www.cancer.org Document Released: 06/07/2006 Document Revised: 05/21/2012 Document Reviewed: [employer] Patient Information 2014 [employer]. No follow up information was provided. Extracted from: Title: Office Visit Note Author: Jessi Bolanos PROPERTY INSURANCE AGENT Date: 09/02/14 Assessment/Plan Breast cancer Final pathology is not available today. Breast pathology often takes a few extra days. So far all I have this the frozen section on the lymph node which was negative for metastasis. I anticipate I'll pathology will be available Monday, your next appointment. Ordered: Postoperative Est [id number] Encounter for change or removal of drains Drain number 3 from the left axilla is removed today and dry gauze applied. Continue keeping track of drainage and bring the record back with you at Peyman's appointment. Ordered: Postoperative Est [id number]
[2016-05-26 12:22] LABS: BASOPHILS % (AUTO) 0.6 % (0-2); EOSINOPHILS # (AUTO) 0.1 T/MM3 (0-0.5); EOSINOPHILS % (AUTO) 1.7 % (0-4); HGB - HEMOGLOBIN 13.3 GM/DL (12-16); LYMPHOCYTES # (AUTO) 1.8 T/MM3 (1-4.8); LYMPHOCYTES % (AUTO) 33.9 % (23-45); MEAN CORPUSCULAR HGB 31.7 UUG (26-34); MEAN CORPUSCULAR HGB CONC(MCHC 34.1 GM/DL (31-37); MEAN CORPUSCULAR VOLUME 93.1 UM3 (80-100); MEAN PLATELET VOLUME 8.5 UM3 (9.4-12.4); MONOCYTES # (AUTO) 0.2 T/MM3 (0-0.8); MONOCYTES % (AUTO) 4.4 % (0-9.0); NEUTROPHILS #(AUTO)-ABSOLUTE 3.2 T/MM3 (1.8-7.7); NEUTROPHILS % (AUTO) 59.4 % (33-66); RED BLOOD COUNT 4.19 M/MM3 (4.00-5.20); WBC - WHITE BLOOD COUNT 5.4 T/MM3 (4.5-11.0)
--- NOTE | 2016-05-26 14:23 | ANESPREOP ---
Anesthesia Record Date and Time DATE: 05/26/16 TIME: 14:17 Pre-Op Diagnosis Cholelithiasis Proposed Surgical Procedure ROBOTIC LAP. JOHAN, ROBOTIC RT, INGUINAL HERNIA REPAIR, POWER PORT REMOVAL NPO since: Midnight Allergies: Coded Allergies: Iodinated Contrast Media - Oral and (Verified Allergy, Intermediate, rash/ hives, 05/26/16) diphenhydramine (Verified Adverse Reaction, Unknown, HEADACHE/NAUSEA, 05/26) Ht/Wt/BMI Height: 4 ' 11.00 " Weight: 50.500 kg BMI: 22.5 kg/m2 Vital Signs Date Time Temp Pulse Resp B/P Pulse Ox O2 Delivery O2 Flow Rate FiO2 05/26/16 12:00 98.7 64 12 127/68 99 Room Air Medications Inpatient Medications Current Medications Medications (Trade) Dose Ordered Sig/Kevon Start Time Stop Time Status Last Admin Dose Admin Lactated Ringer's (Lactated Ringers) 1,000 ml @ 30 mls/hr Q24H 05/26/16 07:00 05/26/16 13:22 30 MLS/HR Acetaminophen (Tylenol Extra Strength) 500 Mg Tablet, 1-2 TAB PO Q6H PRN for PAIN, (Reported) Last Taken: on 05/25/16 2100 Dexamethasone (Dexamethasone) 4 Mg Tablet, 2 TAB PO DAILY, (Reported) Last Taken: on Unknown Date & Time Docusate Sodium (Dulcolax Stool Softener ) 100 Mg Capsule, 1 CAP PO BID, (Reported) Last Taken: on Unknown Date & Time Hydrocodone/Acetaminophen (Varney 5-325 Tablet) 1 Each Tablet, 1 TAB PO Q4-6H PRN for PAIN Last Taken: on Unknown Date & Time Multivitamin (Multi-Day Vitamins) 1 Each Tablet, 1 TAB PO DAILY, (Reported) Last Taken: on Unknown Date & Time Naproxen Sodium (Aleve) 220 Mg Capsule, 220 MG PO Q8H PRN for PAIN, (Reported) Last Taken: on Unknown Date & Time Ondansetron (Zofran Odt) 4 Mg Tab.rapdis , 4 MG PO Q4-6H Oral Disintegrating Tablet Last Taken: on Unknown Date & Time Ondansetron HCl (Zofran) 4 Mg Tablet, 4 MG PO Q8H PRN for NAUSEA, (Reported) Last Taken: on Unknown Date & Time Vits W-Ca,Fe,FA(<1Mg) ( Vitamins) 1 Each Tablet, 1 TAB PO DAILY, (Reported) Last Taken: on Unknown Date & Time Prochlorperazine Maleate (Compazine) 10 Mg Tablet, 1 TAB PO QID PRN for NAUSEA &/OR VOMITING, (Reported) Last Taken: on Unknown Date & Time Currently on Beta [place]: No Medical/Surgical History Anesthesia PMH: Reports: Arthritis, Cancer (BREAST-LEFT), Denies: *Hypertension , *MA, Anesthesia Reactions (NO AIRWAY ISSUES,N&V), Asthma, Blood Transfusion Reac, CHF, COPD, CVA/Stroke/TIA, Clotting Problems, Glaucoma, Malignant Hyperthermia, Pacemaker, Renal Disease, Seizures Smoking Status: Never smoker Has pt. smoked today?: No Use Chewing Tobacco?: No Second Hand Exposure: No Substance Use Type: does not use Alcohol Intake: a few times a month (Patient states "i don't wont you to write down how much I drink") HX of Last Menstrual Period: 2016 Past Surgical History Orthopedic Surgeries: No Abdominal Surgeries: No Genitourinary Surgeries: No Cardiac Surgeries: No Endocrine Surgeries: No Reproductive Surgeries: Yes - C-SECTIONS,LAP TUBAL,B/L MASTECTOMY W/L SENTINAL NODE Neurological Surgeries: No Ear Surgeries: No Nose Surgeries: No Throat Surgeries: No Other Surgeries: Yes - POWER PORT PLACEMENT Anesthesia Adverse Reactions: FOUND none, FOUND nausea and vomiting Pertinent Findings Laboratory Tests 05/26/16 12:08 Test 05/26/16 12:08 Human Chorionic Gonadotropin, Qual Negative (NEGATIVE) EKG Rhythm: Sinus Rhythm Physical Exam Respiratory: Lungs clear Cardiovascular: FOUND Regular rate, rhythm Airway Assessment Mallampati Score: II TMD: 3 Fingerbreadths Neck Extension: Good Teeth: Poor Dentation Overall Assessment: No Airway Concerns ASA: 2 Plan Anesthesia Plan: GETA Discussion Discussed risks/options/alternatives of anesthesia and questions answered. Patient consents. Nursing pain assessment noted. Present: Spouse Attestation Statement Prior to the delivery of any anesthetic medication, I examined the patient, developed the plan, obtained the patient's consent and discussed the risk and benefits of the procedure with the patient/guardian. ARMANDO MURILLO SODA MAKER May 26, 2016 14:21
[2016-05-26] MEDS ORDERED: BUPIVACAINE 0.25%/EPI 1:200,000 30ml SDV ONE (14:27)
[2016-05-26] MEDS ORDERED: ROCURONIUM 50mg/5ml INJECTION IV ONE (15:03)
[2016-05-26] MEDS ORDERED: LIDOCAINE 2% (20mg/ml) 5ml PF SDV ONE (15:03)
[2016-05-26] MEDS ORDERED: PROPOFOL 200mg 20 ML IV ONE (15:03)
[2016-05-26] MEDS ORDERED: FENTANYL 250mcg/5ml INJECTION ONE (15:29)
[2016-05-26] MEDS ORDERED: DESFLURANE 240 ML LIQUID IH ONE (15:33)
[2016-05-26] MEDS ORDERED: EPHEDRINE SULFATE 50mg/ml INJECTION ONE (15:38)
[2016-05-26] MEDS ORDERED: ONDANSETRON 4mg/2ml INJECTION ONE (15:42)
[2016-05-26] MEDS ORDERED: DEXAMETHASONE 4mg/ml - 1ml INJECTION ONE (15:42)
[2016-05-26] MEDS ORDERED: DEXAMETHASONE 4mg/ml - 1ml INJECTION IV PRN (17:15)
[2016-05-26] MEDS ORDERED: METOCLOPRAMIDE 10mg/2ml INJECTION IV PRN ×2 (17:15→17:30)
[2016-05-26] MEDS ORDERED: ONDANSETRON 4mg/2ml INJECTION IV PRN ×2 (17:15→17:30)
[2016-05-26] MEDS ORDERED: KETOROLAC 30mg/ml INJECTION ONE (17:18)
[2016-05-26] MEDS: LR 1,000 ML IV SCH (17:22)
[2016-05-26] MEDS ORDERED: KETOROLAC 30mg/ml INJECTION IV PRN (17:30)
[2016-05-26] MEDS ORDERED: MORPHINE SULFATE 4 MG SYRINGE IV PRN (17:30)
--- NOTE | 2016-05-26 17:30 | GSPOSTPN ---
Procedure Procedure Date: May 26, 2016 Surgeon: Remy Assisting Surgeon: Mitchell Bolanos Anesthesia: Local, GETA ASA: 2 Procedure 1. Robotic assisted laparoscopic cholecystectomy. 2. Right inguinal hernia with mesh, open. 3. Removal of Power Port. GS Diagnosis Postop Diagnosis 1. Symptomatic cholelithiasis 2. Right inguinal hernia. 3. Desire to have Power Port removed, patient done with chemo. Complications Complications Estimated Blood Loss See Anesthesia Record. Vital Signs See Anesthesia and PACU record. NATALIE BOLANOS APRN, CWS May 26, 2016 17:30
--- NOTE | 2016-05-26 17:45 | ANESPO ---
Post-Op Note Date 05/26/16 Time: 17:44 Status Pt Participated in Evaluation: Pt participated in person Vital Signs Date Time Temp Pulse Resp B/P Pulse Ox O2 Delivery O2 Flow Rate FiO2 05/26/16 12:00 98.7 64 12 127/68 99 Room Air Respiratory Function: Airway patent Cardiovascular Function: Regular pulse Telemetry Pattern: SR Mental Status: Lethargic Pain Level Intensity: 3 Hydration: IV infusing Complications during Recovery None apparent Follow-Up Instructions Instructions Per Surgeon ARMANDO MURILLO CRNA May 26, 2016 17:45
[2016-05-26] MEDS ORDERED: SCOPOLAMINE 1.5 MG PATCH TD SCH (18:00)
[2016-05-26] MEDS: HYDROMORPHONE 2mg/ml INJECTION IV PRN ×2 (18:04→18:15)
--- NOTE | 2016-05-26 18:36 | NUR ---
Admit Pt transferred self from cart to bed at this time. VS stable on RA. Side rails up X2, call light w/in reach, bed alarm on.
[2016-05-26] MEDS: IBUPROFEN 600 MG TABLET PO PRN (21:40)
[2016-05-26] MEDS: DOCUSATE SODIUM 100 MG CAPSULE PO SCH (21:40)
[2016-05-26] MEDS: HYDROCODONE/APAP 5 mg/325 mg TABLET PO PRN (21:41)
[2016-05-27] MEDS: LR 1,000 ML IV SCH (03:22)
[2016-05-27 04:00] VITALS: BP 119/68; PULSE 69; RESP 18; TEMP 96.5; O2SAT 99
[2016-05-27] MEDS: HYDROCODONE/APAP 5 mg/325 mg TABLET PO PRN ×2 (04:45→09:51)
[2016-05-27] MEDS: IBUPROFEN 600 MG TABLET PO PRN (04:46)
--- NOTE | 2016-05-27 05:50 | NUR ---
SHIFT REPORT ALERT/ORIENTED X3. VITAL SIGNS STABLE, ON RM AIR. FLUIDS DCD. 6 LAP SITES W/HERNIA-OPEN. PT REPORTED N/V. DIAPHORETIC. SCOPOLAMINE PATCH, AND ZOFRAN GIVEN.REPORTS FEELING BETTER. AMBULATES TO BR X1. ATE TURKEY SANDWICH AND 2 PUDDINGS. SCDS ON. ADEQUATE INTAKE/OP. WILL CONTINUE TO MONITOR.
[2016-05-27 08:02] VITALS: BP 107/65; PULSE 57; RESP 18; O2SAT 97
[2016-05-27] MEDS ORDERED: DEXAMETHASONE 4 MG TABLET PO SCH (09:00)
[2016-05-27] MEDS: DOCUSATE SODIUM 100 MG CAPSULE PO SCH (09:51)
[2016-05-27] MEDS ORDERED: HYDR-4246 PO (10:37)
[2016-05-27] MEDS ORDERED: IBUP-2067 PO (10:37)
[2016-05-27] MEDS ORDERED: POLY17PO6 PO (10:37)
--- NOTE | 2016-05-27 10:44 | PNSURG ---
Subjective DATE: 05/27/16 TIME: 10:37 Interval History She is POD #1 from lap amelia and open right inguinal hernia repair and removal of her power port. She is "sore" this morning but states she is feeling like she would do well at home. The Ibuprofen and Hamer have been helpful. She had some breakfast. Denies nausea. WE discussed post op expectations and activity. Plan on routine post op visit June 14, sooner if concerns arise. Objective Vital Signs Date Time Temp Pulse Resp B/P Pulse Ox O2 Delivery O2 Flow Rate FiO2 05/27/16 08:02 57 18 107/65 97 Room Air 05/27/16 04:00 96.5 05/26/16 23:21 4.00 Height (Feet): 4 Height (Inches): 11.00 Weight (Kilograms): 52.900 BMI 22.5 General Appearance: Alert, Orientated x 3 Respiratory: FOUND: clear bilaterally Cardiac: FOUND: regular rate, regular rhythm Abdominal Brief: FOUND: appropriately tender (at incisions), soft Laboratory Laboratory Tests 05/26/16 12:08 Procedure Procedure Date: May 26, 2016 Surgeon: Remy Procedure 1. Robotic assisted laparoscopic cholecystectomy. 2. Right inguinal hernia with mesh, open. 3. Removal of Power Port. Assessment & Plan Problems: (1) Right inguinal hernia Status: Resolved (2) Cholelithiases Status: Resolved Qualifiers: Cholelithiasis location: gallbladder Cholecystitis presence: with cholecystitis Cholecystitis acuity: chronic Biliary obstruction: without biliary obstruction Qualified Codes: K80.10 - Calculus of gallbladder with chronic cholecystitis without obstruction (3) Breast cancer Status: Acute Qualifiers: Breast location: unspecified site of breast Patient sex: female Laterality: bilateral Qualified Codes: C50.911 - Malignant neoplasm of unspecified site of right female breast; C50.912 - Malignant neoplasm of unspecified site of left female breast Assessment Doing well for POD#1 eating regular diet without nausea, Hamer and Ibuprofen are helping for pain. VSS. present to assist with home care. Plan DC to home today DVT Prophylaxis: SCD'S Code Status Full Code Hospital Course Summary Disclaimer The visit summary below is not to be considered part of the above Progress Note. NATALIE CABRAL APRN, CWS May 27, 2016 10:41
--- NOTE | 2016-05-27 11:15 | OPNOTEF ---
DATE OF PROCEDURE 05/26/2016 SURGEON Parker Alberto MD. PUBLIC SAFETY TELECOMMUNICATOR Jessi Bolanos APRN PREOPERATIVE DIAGNOSIS Symptomatic cholelithiasis, symptomatic right inguinal hernia, personal history for breast cancer with no further need for long-term central venous access. POSTOPERATIVE DIAGNOSIS Symptomatic cholelithiasis, symptomatic right inguinal hernia, personal history for breast cancer with no further need for long-term central venous access. PROCEDURE Robotic-assisted laparoscopic cholecystectomy, right inguinal herniorrhaphy via open mesh plug technique, removal of a PowerPort catheter. ANESTHESIA General endotracheal and local. BRIEF HISTORY/INDICATIONS Mrs. Rocha is a 56-year-old female who is known my surgical practice. I have taken care of her in the past as a result of her history for breast cancer. The patient has requested that her PowerPort catheter be removed. The patient informed me that even she would have recurrence of her cancer she would not repeat her chemotherapy. The patient also has had intermittent right upper quadrant abdominal pain as well as history for noticing a "bulge" within her right inguinal region that was painful in nature. Upon examination the patient was found to have a right inguinal hernia. Upon sonography she was found to have evidence for cholelithiasis. It was felt the patient was suffering from symptomatic cholelithiasis as well as secondary to a symptomatic right inguinal hernia. It was recommended that she undergo removal of her PowerPort catheter, a cholecystectomy, and repair of her right inguinal hernia. The patient presents today to undergo this procedure. DESCRIPTION OF PROCEDURE After informed consent was obtained, the patient was brought to the operative suite and placed on the table in supine fashion. The abdomen was then prepped and draped in sterile fashion. Formal time-out was then completed. 0.25% Marcaine with epinephrine was injected just beneath the level of the umbilicus. A 2 cm curved incision was then made through the area of analgesia. Dissection was carried down through deep subcuticular tissues to the underlying fascia. Fascia was then grasped with two Nader clamps, retracted anteriorly. A 1-cm incision was made between the two Nader clamps. A hemostat was then introduced in the fascial incision and gently spread. A mattress suture was then placed with 0 Vicryl through the fascial opening. A 12 mm port was then placed through the fascial opening and a pneumoperitoneum was then established to a patient pressure of 15 mmHg utilizing carbon dioxide. Two additional 8-mm da Radha ports were then placed within the left upper quadrant and within the right lower quadrant under direct visualization. Additionally a 5-mm assist port was then placed along the right lateral abdominal wall under direct visualization. Abdominal cavity was explored via the laparoscope. Liver edge smooth was without nodularities. Peritoneal surfaces, small bowel colon and omentum which were visualized were within normal limits. Gallbladder itself was found to be abnormal. There was omentum adherent to the gallbladder indicative of prior inflammation. The patient was placed within a reverse Trendelenburg position and slightly rotated towards her left. Robot was then docked overlying the patient's right shoulder at a 45-degree angle. Fundal portion of the gallbladder was then grasped by my research lab assistant through the right lateral port and the fundal portion of the gallbladder was retracted in a cephalad and slightly lateral fashion. As stated above, there was some omentum adherent to the gallbladder. This omentum was grasped and retracted outwardly and dissected away from the gallbladder. At no point in time was electrocautery performed adjacent to a hollow viscus such as the transverse colon, stomach or duodenum. Once the duodenum and stomach had been dissected away from the infundibular portion of gallbladder, the infundibular portion of the gallbladder was then grasped and retracted in a lateral and slightly caudad fashion to provide exposure to the triangle CADE. Dissection was begun high upon the infundibulum of the gallbladder. Dissection was continued until the only remaining structures coming forth from the infundibulum of the gallbladder were that of the cystic duct and cystic artery. Posterior aspect of the infundibulum was completely freed from underlying liver bed fossa. Once a critical view of safety had been obtained, a single Hem-o-tori clip was then placed upon the cystic artery upon the midportion of the infundibulum of the gallbladder. An additional Hem-o-tori clip was then placed just proximally. Next, an additional Hem-o-tori clip was then placed upon the cystic duct adjacent to the infundibular portion of the gallbladder. An additional Hem-o-tori clip was then just placed proximally upon the cystic duct. We elected not to use Firefly biliary imaging secondary to the fact the patient had an IV iodine allergy. No anatomy, however, was clearly dissected out. The patient was fairly thin and one could actually see the cystic duct as it coursed down to the common bile duct. One could see the cystic duct/common bile duct junction. Next, the cystic duct and cystic artery were then divided between the two Hem-o-tori clips. Gallbladder was then dissected off the liver bed fossa. During the process of dissecting the gallbladder, a small opening was created within the gallbladder and a small amount of bile was spilled during the process of dissection. This would be considered to be inherent to the procedure. The robot was then undocked and the gallbladder was then placed in a laparoscopic retrieval bag and removed via the infraumbilical port site. Irrigation was then performed and all irrigant was suctioned till clear. Gallbladder fossa was hemostatic in nature. Previously placed hemoclips were visualized and remained intact. The laparoscope being held by hand was then placed in such a fashion that one could see into the pelvis. The patient was taken out of reverse Trendelenburg position and one could see a moderate-size right inguinal hernia as well as a small left inguinal hernia as well. Secondary to the fact that I did spill a small amount of bile during the process of dissecting the gallbladder off of the liver bed fossa, I elected not to proceed with a robotic inguinal hernia via a transabdominal preperitoneal fashion secondary to the potential risk for infection of the mesh. The ports were removed under direct visualization. Pneumoperitoneum was then released. Previously placed U-stitch was then secured imbricating the fascia at the infraumbilical port site. All skin incisions were then closed in a subcuticular fashion with 4-0 Monocryl. Dermabond was placed overlying the incisions. A sterile drape was then placed overlying the surgical incisions from the cholecystectomy. New instruments and gloves were obtained. Attention was then focused towards the right inguinal region. 0.25% Marcaine with epinephrine was injected just above the pubic symphysis and extended out laterally. A 3-4 cm incision was then made overlying the area of analgesia. Dissection was carried down through deep subcuticular tissues to the underlying external oblique aponeurosis. External oblique aponeurosis was then opened along the course of the fibers down to and through the external ring. One could see a moderate-sized indirect hernia sac coming forth from the internal ring and extending down to the external ring. Hernia sac was dissected free. The remnant of the round ligament was divided with cautery as well near the pubic symphysis. Hernia sac was dissected out circumferentially and returned back through the internal ring. A medium mesh plug was then brought forth in the operative field and placed through the internal ring, further reducing the indirect hernia sac. Mesh plug was then imbricated to the surrounding tissues by placing a few simple interrupted sutures of 2-0 Prolene. Additionally, it should be noted that the ilioinguinal nerve was identified and dissected out of the surgical field. Next, the mesh overlay was brought forth in the operative field and imbricated to the underlying tissues in a standard Deandre fashion. First, the mesh overlay was imbricated to the pubic symphysis with 2-0 Prolene. Mesh overlay was imbricated along the shelving edge out laterally in a running fashion with 2-0 Prolene. Medially, the mesh overlay was imbricated to the underlying internal oblique and transverse aponeurosis also in running fashion with 2-0 Prolene. Along the cephalad aspect the mesh was also imbricated to underlying internal oblique and transversalis aponeurosis. This resulted in a completed mesh plug inguinal herniorrhaphy. Prior areas of dissection were inspected and found to be hemostatic in nature. The ilioinguinal nerve was then returned back to its anatomic location and the external oblique aponeurosis was closed anterior to the ilioinguinal nerve. Care was taken so as to not incorporate the nerve into the closure of the external oblique aponeurosis. Soo's fascia was then reapproximated in a running fashion with 3-0 Vicryl. Skin itself was then closed in a subcuticular fashion with 4-0 Monocryl. Dermabond was placed overlying the incision. Next, the right clavicular region was prepped and draped in a sterile fashion. 0.25% Marcaine with epinephrine was injected along her prior surgical incision just above the anatomic location of the PowerPort catheter. A 2-3 cm incision was made through the area of analgesia. Dissection was carried down to the underlying port itself. The port was then dissected free from the surrounding tissues. Previously placed Prolene sutures were removed that secured the port to the pectoralis fascia. The port and the catheter in its entirety was then removed. A [id number] suture was placed along the prior catheter tract resulting in closure of the residual tract once the catheter had been removed. Incision itself was then closed in two layers. Deep subcutaneous tissues were closed by placing a few simple interrupted sutures of 3-0 Vicryl. Skin itself was then closed in a subcuticular fashion with 4-0 Monocryl. The patient tolerated the procedure without difficulty and is the process of awakening from her anesthetic. She will be sent back to the recovery room once deemed in stable condition. Additionally, it should be noted that Mitchell Bolanos APRN, was present throughout the entire case and played a pivotal role in providing assistance and exposure during the course of the procedure. MATA
--- NOTE | 2016-05-27 13:00 | NUR ---
DISMISSAL PATIENT DISMISSED TO HOME FOR SELF CARE TO THE ER ENTRANCE. PATIENT AMBULATORY. PATIENT'S WAS THE [employer] [facility] HOME. PATIEN STABLE AND ON ROOM AIR AT TIME OF DISMISSAL. PERSONAL BELONGINGS RETURNED PRIOR TO D/C. IV CATHETER REMOVED AND IV CATHETER TIP INTACT. D/C INSTRUCTIONS REVIEWED WITH PATIENT AND . BOTH VERBALIZED UNDERSTANDING. TOPICS DISCUSSED INCLUDED: NEW MEDICATIONS, S/S TO REPORT, FOLLOW UP APPOINTMENTS, DIET, AND ACTIVITY RESTRICTIONS.
--- NOTE | 2016-05-27 14:50 | NUR ---
CM CM IN TO VISIT WITH PT. SHE IS ALERT AND ORIENTED. HER SPOUSE IS PRESENT. PT PLANS TO DC HOME. SHE DENIES DC NEEDS. SHE IS GIVEN CM CONTACT INFORMATION. Addendum: 05/27/16 at 1451 by REYNALDO WILLIAMSON RN Amended: Links added.
--- NOTE | 2016-05-31 13:29 | NUR ---
CM THIS CM PLACED DISCHARGE FOLLOW UP CALL TO PATIENT, NO ANSWER AND VOICE MAIL WAS LEFT.
== END 2016-05-27 13:00 | disposition home or self-care (01) ==
LOC: SCU 11:34 → SRG 11:35 → SCU 05-27 13:00
PROVIDERS: ATTEND Surgery
DX: K80.10 Calculus of gallbladder with chronic cholecystitis without obstruction (principal); K82.8 Other specified diseases of gallbladder; K40.90 Unilateral inguinal hernia, without obstruction or gangrene, not specified as recurrent; Z45.2 Encounter for adjustment and management of vascular access device; Z91.041 Radiographic dye allergy status; Z85.3 Personal history of malignant neoplasm of breast; Z90.13 Acquired absence of bilateral breasts and nipples
CPT/HCPCS: 36415; 36590; 47562; 49505; 84703; 85025; J0330; J1100; J1170; J1335; J1885; J2405; J2704; J2765; J3010; J7050; J7120; J8540; S2900